=== PATIENT | female | born 1950 | race Two or more races ===

== ENCOUNTER 2018-04-20 18:07 | Inpatient (IN) | payer MEDICAID ==
[~2018-04-20] VITALS: Ht 154.9 cm; Wt 49.6 kg
--- NOTE | ~2018-04-20 | MORECARE ---
CASE MANAGEMENT DISCHARGE SUMMARY PATIENT: CYNTHIA MORLEY UNIT: [id number] ADM DATE: 04/20/18 AGE: 67 : 48 SEX: F ROOM/BED: [facility] AUTHOR: LEANNE,DOC PHYSICIAN: REFERRING PHYSICIAN: LASHELL MCKEON M.D. DATE OF SERVICE: 05/02/18 Discharge Plan Patient Name: CYNTHIA MORLEY Facility: [facility]:[place] : 1950 Planned Disposition: Home Anticipated Discharge Date: Discharge Date: 05/02/2018 Expected LOS: Initial Reviewer: [email or web address] Initial Review Date: 04/23/2018 Generated: 05/02/18 4:29 pm Comments DCP- Discharge Planning Updated by [email or web address]: Brenda Handley on 05/02/18 2:[address] LATE ENTRY 05/01/18 1430 CM received order to work on d/c plan to establish PCP and obtaining discharge medications. CM looked up all of patients medications. Amiodarone is $9.00, Plavix is $9.00, Metoprolol is $9.00, and pravastatin is $4.00. CM spoke with Dr. Lindo to see about PCP planning. Dr. Lindo suggested that patient get set up with [facility]. CM called [facility] and got packet printed in Norwegian for patient. CM will continue to follow and assist as needed with discharge planning / needs. DCP- Discharge Planning Updated by [id number]: Armando Bourgeois on 04/23/18 5:[address] Patient Name: CYNTHIA MORLEY Admission Status: ER Accout number: [id number] Admission Date: 04-20-2018 : 1950 Admission Diagnosis:CHEST PAIN, UNSPECIFIED Attending: LASHELL MCKEON Current LOS: 3 Anticipated DC Date: Planned Disposition: Home Primary Insurance: UNINSURED DISCOUNT PLAN Discharge Planning Comments: CM MET WITH PT AND WINDYER IN ROOM TO DISCUSS DISCHARGE PLANNING AND NEEDS. CM OFFERED TO USE SALES LEADER PHONE FOR TRANSLATION. AFTER INTRODUCTION, PT ASKED FOR HER DAUGHTER, LUCILLE TO INTERPRET. LUCILLE REPORTS SPEAKING A LITTLE BURKINAN. PT REPORTS LIVING AT HOME INDEPENDENTLY WITH ADULT SON. PT HAS NO MEDICAL EQUIPMENT AND NO OUTSIDE SERVICES ASSISTING IN THE HOME. CM DISCUSSED AVAILABILITY OF HOME HEALTH, REHAB SERVICES AND MEDICAL EQUIPMENT. PT HAS UNKNOWN DISCHARGE NEEDS AND REPORTS SHE IS GOING TO HAVE OPEN HEART SURGERY HERE SOON AND DOES NOT KNOW WHAT IS GOING TO HAPPEN AFTER THAT, PT REPORTS PLAN TO DISCHARGE HOME WITH HER SON. DAUGHTER REPORTS FAMILY WILL PICK PT UP FOR DISCHARGE HOME. CM OBTAINED COPY OF PT'S INSURANCE CARD AND PROVIDED TO JUAN PIERRE OF ADMISSIONS REQUESTED. PATIENT REPORTS SPEAKING NO BURKINAN AND UNDERSTANDS MAORI ONLY. PT PLANS TO DISCHARGE HOME WITH HER ADULT SON, UNKNOWN IF THERE ARE ANY DISCHARGE NEEDS AT THIS TIME. CM TO CONTINUE TO FOLLOW AND ASSIST IF NEEDED. Color Receiver: Armando Bourgeois DCPIA - Discharge Planning Initial Assessment Updated by [email or web address]: Armando Bourgeois on 04/23/18 5:56 pm * Is the patient Alert and Oriented? Yes * How many steps to enter\exit or inside your home? 2-0 / 0-I * PCP NONE * [facility] * Preadmission Environment Home with Family * ADLs Independent * Equipment None * Other Equipment NO MEDICAL EQUIPMENT PROVIDER PREFERENCE * List name and contact numbers for known caregivers / representatives who currently or will assist patient after discharge: LUCILLE KEANE, DAUGHTER, * Verbal permission to speak to the caregivers and representatives has been obtained from the patient. Yes * Community resources currently utilized None * Please name any agencies selected above. NONE * Additional services required to return to the preadmission environment? No * Can the patient safely return to the preadmission environment? Yes * Has this patient been hospitalized within the prior 30 days at any hospital? No Last DP export: 04/23/18 5:09 p Patient Name: CYNTHIA MORLEY Page [id number] at 1529 All edits/amendments must be made on the electronic document DICTATION DATE: 05/02/181528 BOARD DESIGN ENGINEER: CONNOR 05/02/181528 RPT#: [id number] DC DATE:05/02/18 STATUS: DIS IN [facility] [address] [place] [address] END OF REPORT
--- NOTE | ~2018-04-20 | HEMODYNAMI ---
PATIENT:CYNTHIA MORLEY MEDICAL RECORD: [id number] : 46 LOCATION:[facility] [address] [facility] [id number] ADMISSION DATE: 04/20/18 Generatedon:04/22/20189:22 Patient name: CYNTHIA MORLEY Patient #: [id number] SSN: DO B: 1950 Date of study: 04/22/2018 Page: Of Hemodynamic Procedure Report Patient Data Patient Demographics Procedure consent was obtained First Name: CYNTHIA Gender: Female Last Name: PEYMAN : 1950 Middle Initial: A Age: 67 year(s) Patient #: [id number] Race: Other Additional ID: [id number] Contact details [address]: [address] [place] [address] TRAIL State: [place] City: [place] Zip code: [address] Past Medical History Allergies: No known allergies Admission Admission Data Admission Date: 04/20/2018 Admission Time: 21:23 Room #: D.2107 Height (in.): 60.63 BSA: 1.51 (m2) Height (cm.): 154 BMI: 22.77 (kg/m2) Weight (lbs.): 119.05 Weight (kg.): 54 Lab Results Lab Result Date: 04/22/2018 Lab Result Time: 0:00 Biochemistry Name Units Result Min Max BUN mg/dl 25 --(----)-* 7 18 Creatinine mg/dl 1 --(--*-)-- 0.6 1.3 Glucose mg/dl 214 --(----)-* 74 106 CBC Name Units Result Min Max Hemoglobin g/dl 12.6 -*(----)-- 13.5 17.5 Procedure Procedure Types Cath Procedure Diagnostic Procedure [facility] w/Coronaries Procedure Description Procedure Date Procedure Date: 04/22/2018 Procedure Start Time: 9:04 Procedure End Time: 9:21 Procedure Staff Name Function Justice Alex MD Performing Physician Keiht Shah RT Medical Historiantristen Reyes RT Monitor Maegan Feliciano RN Nurse Natividad Bui RT Scrub Procedure Data Cath Procedure Fluoroscopy Diagnostic fluoroscopy Total fluoroscopy Time: 2.7 time: 2.7 min min Diagnostic fluoroscopy Total fluoroscopy dose: 359 dose: 359 mGy mGy Contrast Material Contrast Material Type Amount (ml) Isovue 300 72 Entry Location Entry Primary Successful Side Size Upsize Upsize Entry Closure Succes sful Closure Location (Fr) 1 (Fr) 2 (Fr) Remarks Device Remarks Femoral Right 5 Fr Exoseal artery Estimated blood loss: 10 ml Diagnostic catheters Device Type Used For End Catheter Placement MULTIPACK JL 4.0 5Fr Procedure catheter MULTIPACK 3DRC 5Fr Procedure catheter DIAGNOSTIC IM 5Fr Procedure catheter ([id number]) MULTIPACK Pigtail 5 Fr Procedure catheter Procedure Complications No complications Procedure Medications Medication Administration Route Dosage Oxygen etCO2 Nasal cannula 2 l/min Lidocaine 2% added to field 20 Heparin Flush Bag added to field 2 bags (1000units/500ml NS) 0.9% NaCl I.V. 100 ml/hr Versed I.V. 1 mg Fentanyl I.V. 50 mcg Versed I.V. 1 mg Fentanyl I.V. 50 mcg Hemodynamics Rest BSA: 1.51 (m2) HGB: 12.6 (g/dl) O2 Consumption: Estimated: 140.05 (ml/min) O2 Co nsumption indexed: Estimated:92.75 (ml/min/m) Heart Rate: 71 (bpm) Pressure Samples Time Site Value (mmHg) Purpose Heart Use Rate(bpm) 9:15 LV 144/6,14 Snapshot 70 Gradients Valve Time Site Site Mean SEP/DFP Peak To Heart Use 1 2 (mmHg) (sec/min) Peak Rate (mmHg) (bpm) Aortic 9:16 LV AO 70 Snapshots Pre Cath Intra NCS Post Cath Vital Signs Time Heart Resp SPO2 etCO2 NIBP (mmHg) Rhythm Pain Sedation Rate (ipm) (%) (mmHg) Status Level (bpm) 8:32:58 70 23 92 35.4 162/74(121) NSR 0 (11) 10(A) , No pain 8:37:16 73 22 95 31.6 151/85(117) NSR 0 (11) 10(A) , No pain 8:41:32 76 19 94 10.5 153/78(114) NSR 0 (11) 10(A) , No pain 8:45:50 67 15 96 33.9 148/72(106) NSR 0 (11) 10(A) , No pain 8:50:08 67 15 96 26.3 137/69(111) NSR 0 (11) 10(A) , No pain 8:54:22 66 15 95 0 141/70(93) NSR 0 (11) 10(A) , No pain 8:58:38 73 17 94 23.3 141/66(101) NSR 0 (11) 10(A) , No pain 9:02:56 71 17 95 0 139/61(94) NSR 0 (11) 10(A) , No pain 9:07:12 67 13 93 20.3 136/64(110) NSR 0 (11) 9(A) , No pain 9:11:28 67 11 94 27.1 138/62(92) NSR 0 (11) 9(A) , No pain 9:15:44 71 14 93 18 129/65(81) NSR 0 (11) 9(A) , No pain 9:19:56 68 16 94 18.1 141/62(87) NSR 0 (11) 10(A) , No pain Medications Time Medication Route Dose Verified Delivered Reason Notes Effe ctiveness by by 8:36:12 Oxygen etCO2 2 Justice Buffie used for Nasal l/min Isai Feliciano RN procedure cannula 8:38:18 Lidocaine 2% added 20ml Justice Justice for local to vial Isai Alex MD anesthetic field 8:38:23 Heparin Flush added 2 Justice Justice used for Bag to bags Isai Alex MD procedure (1000units/500ml field NS) 8:38:31 0.9% NaCl I.V. 100 Justice Buffie Per ml/hr Isai Feliciaon RN physician 9:04:24 Versed I.V. 1 mg Justice Buffie for Isai Feliciano RN sedation 9:04:30 Fentanyl I.V. 50 Justice Buffie for mcg Isai Feliciano RN sedation 9:09:45 Versed I.V. 1 mg Justice Buffie for Isai Feliciano RN sedation 9:09:48 Fentanyl I.V. 50 Justice Buffie for mcg Isai Feliciano RN sedation Procedure Log Time Note 8:06:25 Patient Height : 60.63 inches 8:06:29 Patient Weight : 119.05 lbs 8:28:50 Lab Result : Creatinine 1 mg/dl 8::50 Lab Result : Hemoglobin 12.6 g/dl 8::50 Lab Result : Glucose 214 mg/dl 8::50 Lab Result : BUN 25 mg/dl 8:29:37 Diagnostic Cath status Elective 8:29:44 Keith Shah RT(R) sent for patient. Start room use. 8:30:35 Transported pt to laboratory phlebotomist via bed after using the foreign language line to assist this nurse to obtain understanding and made available the opportunity to have her ask any questions, and obtaining other pert. information needed. 8:31:12 Time tracking: Regular hours (M-F 7:00 - 5:00) 8:31:26 Plan of Care:Hemodynamics will remain stable., Cardiac rhythm will remain stable., Comfort level will be maintained., Respiratory function will remain adequate., Patient/ family verbilizes understanding of procedure., Procedure tolerated without complication., Recovers from procedure without complications.. 8:31:35 Patient received from Pre/Post Procedure Room to CCL 2 Alert and oriented. Tansferred to table in Supine position. 8:31:36 Warm blankets applied, and ramone hugger turned on for patient comfort. 8:31:37 Correct patient and procedure confirmed by team. 8:31:39 Signed procedure consent form obtained from patient. 8:31:40 ECG and BP/O2 sat monitors applied to patient. 8:31:42 Vital chart was started 8:31:45 Baseline sample Acquired. 8:32:02 Full Disclosure recording started 8:32:27 H&P Date Dictated: 04/20/2018 Within 30 days and on chart., H&P Addendum completed by physician on day of procedure. (MUST COMPLETE FOR ALL OUTPATIENTS). 8:32:29 Pre-procedure instructions explained to patient. 8:32:38 Family in patients room. 8:32:40 Patient NPO since Midnight. 8:32:52 Patient allergic to No known allergies 8:33:02 Is the patient allergic to Iodine/contrast media? No. 8:33:07 Was the patient premedicated? Yes 8:33:09 Is patient on blood thinner?No 8:33:14 Patient diabetic? Yes. 8:33:15 If diabetic: On Metformin? Unknown 8:33:28 Snore? No 8:33:38 Sleep apnea? No 8:33:40 Deviated septum? No 8:34:01 Dentures? No partials 8:34:08 Patient pain scale 0/10 ?. 8:34:20 IV patent on arrival in left forearm with 0.9% NaCl at [facility]. 8:34:25 Lab results completed and on chart. 8:34:29 Right groin area was prepped with chlora-prep and draped in sterile fashion 8:34:30 Alarms reviewed by R. N. 8:34:30 Sharps counted by scrub and verified by R.N. 8:34:31 Physician paged 8:36:12 Oxygen 2 l/min etCO2 Nasal cannula was administered by Maegan Feliciano RN; used for procedure; 8:38:18 Lidocaine 2% 20ml vial added to field was administered by Justice Alex MD; for local anesthetic; 8:38:23 Heparin Flush Bag (1000units/500ml NS) 2 bags added to field was administered by Justice Alex MD; used for procedure; 8:38:31 0.9% NaCl 100 ml/hr I.V. was administered by Maegan Feliciano RN; Per physician; 9:03:56 Physician arrived 9:03:57 --------ALL STOP TIME OUT------ 9:03:59 Final Timeout: patient, procedure, and site verified with staff and physician. All members of the team are in agreement. 9:04:02 Right groin site verified by team. 9:04:05 Physical assessment completed. ASA score P 2 - A patient with mild systemic disease as per Justice Alex MD. 9:04:09 Sedation plan: IV Moderate Sedation Medication:Versed, Fentanyl 9:04:13 Use device set Femoral Dx 9:04:16 Procedure started. 9:04:24 Versed 1 mg I.V. was administered by Maegan Feliciano RN; for sedation; 9:04:30 Fentanyl 50 mcg I.V. was administered by Maegan Feliciano RN; for sedation; 9:04:35 Local anesthetic to right femoral artery with Lidocaine 2% by Justice Alex MD.INITIAL ACCESS ONLY 9:04:36 ACIST Syringe (07098) opened to sterile field. 9:04:37 Bag Decanter (2002S) opened to sterile field. 9:04:37 Medline Cath Pack ([id number]) opened to sterile field. 9:04:38 DIAGNOSTIC WIRE .035 260cm J wire (931904) opened to sterile field. 9:04:39 ACIST Hand Control (76238) opened to sterile field. 9:04:40 ACIST Manifold (88419) opened to sterile field. 9:04:40 DIAGNOSTIC Multipack 5Fr catheter set (YR4801) opened to sterile field. 9:04:43 SHEATH 5FR [place] (XOM047) opened to sterile field. 9:06:49 A 5 Fr sheath was inserted into the Right Femoral artery 9:07:01 A MULTIPACK JL 4.0 5Fr catheter was advanced over the wire and used for Procedure. 9:09:37 LCA angiography performed. 9:09:40 Catheter removed. 9:09:45 Versed 1 mg I.V. was administered by Maegan Feliciano RN; for sedation; 9:09:48 Fentanyl 50 mcg I.V. was administered by Maegan Feliciano RN; for sedation; 9:09:53 A MULTIPACK 3DRC 5Fr catheter was advanced over the wire and used for Procedure. 9:11:11 RCA angiography performed. 9:12:35 A DIAGNOSTIC IM 5Fr catheter ([id number]) was advanced over the wire and used for Procedure. 9:13:55 BAUER angiogram 9:14:25 Catheter removed. 9:15:08 A MULTIPACK Pigtail 5 Fr catheter was advanced over the wire and used for Procedure. 9:15:48 LV hemodynamics recorded. 9:16:02 EF : 35 % 9:17:00 Catheter removed. 9:17:41 EXOSEAL 5Fr (EX500) opened to sterile field. 9:17:42 Tegaderm 4 x 4 (1626W) opened to sterile field. 9:19:25 Sheath removed intact; hemostasis achieved with Exoseal to the Right Femoral artery. 9:19:36 Procedure ended.(Physican Out) 9:19:42 Fluoroscopy time 02.70 minutes. 9:19:47 Fluoroscopy dose: 359 mGy 9:19:47 Flurop Dose total: 359 9:19:53 Contrast amount:Isovue 300 72ml. 9:19:56 Sharps counted by scrub and verified by R.N. 9:20:25 Insertion/operative site no bleeding no hematoma. 9:20:31 Post-op/insertion site Right Femoral artery dressed using a 4 x 4 and Tegaderm. 9:20:34 Post right femoral artery:stable 9:20:45 Post-procedure physical assessment completed. ASA score P 3 - A patient with severe systemic disease as per Justice Alex MD. 9:20:57 Post procedure rhythm: unchanged. 9:21:00 Estimated blood loss: 10 ml 9:21:02 Post procedure instruction explained to patient.Patient verbalizes understanding. 9:21:05 Patient needs reinforcement of post procedure teaching. 9:21:14 Procedure and supply charges have been captured, reviewed, submitted and are correct. 9:21:38 Procedure Complication : No complications 9:21:41 Vital chart was stopped 9:21:42 See physician's report for complete and final results. 9:21:43 Report given to Pre/Post Procedure Room. 9:21:47 Patient transfered to Pre/Post Procedure Room with Stretcher. 9:21:49 Procedure ended. 9:21:49 Full Disclosure recording stopped 9:21:57 End room use (Document Last) Device Usage Item Name Manufacture Quantity Catalog Hospital Part Current Minimal L ot# / Number Charge Number Stock Stock Serial# Code ACIST Acist 1 41338 804393 448089 411724 20 Syringe Medical (64051) Systems Inc Bag Microtek 1 968872 23735 231563 5 Decanter Medical Inc. () Medline Medline 1 [id number] 276660 91651 821275 5 Cath Pack ([id number]) DIAGNOSTIC St Osvaldo 1 308145 983919 717845 912507 30 WIRE .035 260cm J wire (216897) ACIST Hand Acist 1 43588 385022 432625 485940 5 Control Medical (90285) Systems Inc ACIST Acist 1 19586 100136 040777 562630 5 Manifold Medical (33654) Systems Inc DIAGNOSTIC Cardinal 1 AP6068 267654 51600 917054 30 Multipack Health 5Fr catheter set (FF3362) SHEATH 5FR Terumo 1 VVM760 919417 964754 445335 40 [place] (AZJ065) MULTIPACK Cardinal 1 881149 5 JL 4.0 5Fr Health catheter MULTIPACK Cardinal 1 836661 5 3DRC 5Fr Health catheter DIAGNOSTIC Cardinal 1 [id number] 123712 162146 885533 5 IM 5Fr Health catheter ([id number]) MULTIPACK Cardinal 1 794385 5 Pigtail 5 Health Fr catheter EXOSEAL 5Fr Cardinal 1 EX500 567042 042142 382109 10 (EX500) Health Tegaderm 4 3M 1 1626W 631332 383839 123065 5 x 4 (1626W) Signature Audit [place] Stage Time Signature Unsigned Intra-Procedure 04/22/2018 Shahida Reyes 9:22:53 AM RT(R) Signatures Monitor : Shahida Reyes Signature : RT Date : Time : [address] [address]
--- NOTE | ~2018-04-20 | OP ---
PATIENT NAME: CYNTHIA MORLEY MEDICAL RECORD: [id number] :46 LOCATION:D.CVI D.CV04 ADMISSION DATE:04/20/18 SURGEON: JACE BAR MD DATE OF OPERATION: 04/25/2018 SURGEON: Jace Bar MD ASSISTANTS: Shelbi Meyers MD and Christopher Sepulveda MD PREOPERATIVE DIAGNOSES: Coronary artery disease with myocardial infarction, ischemic cardiomyopathy, uncontrolled diabetes, hypertension, and hyperlipidemia. POSTOPERATIVE DIAGNOSES: Coronary artery disease with myocardial infarction, ischemic cardiomyopathy, uncontrolled diabetes, hypertension, and hyperlipidemia. PROCEDURES: 1. Coronary artery bypass graft times 3 (left internal mammary artery to LAD, reverse saphenous vein graft from aorta to diagonal and aorta to obtuse marginal). 2. Endoscopic saphenous vein harvest. 3. Percutaneous insertion intra-aortic balloon pump via right common femoral artery. ANESTHESIA: General endotracheal anesthesia. ESTIMATED BLOOD LOSS: Total cardiopulmonary bypass with CellSaver retransfusion, no bank blood transfusions. SPECIMENS: None. COMPLICATIONS: None. CONDITION: Stable. DISPOSITION: CV ICU. OPERATIVE FINDINGS: 1. Transesophageal echocardiography confirmed ischemic cardiomyopathy with ejection fraction of 35% but no valvular stenosis or incompetence, improved contractility after coronary artery bypass graft. 2. Adequate quality greater saphenous vein, particularly the upper thigh dissection, which was used for the obtuse marginal graft. 3. Good quality internal mammary artery. The LAD was a severely diseased vessel and a 1.5 mm probe passed proximally 3 cm and distally almost to the apex with distal disease as seen on the arteriogram. 4. The diagonal was a branching vessel. The only site for distal anastomosis was in the more proximal branch, which a 1.0 mm probe would not pass more than [address], but after anastomosis did have outflow and after separation from cardiopulmonary bypass and heparin did have audible Doppler flow, however, very poor target and would not expect long-term patency of this graft. 5. The obtuse marginal was a 1.5 mm severely diseased vessel. 6. After separation from cardiopulmonary bypass, hypotension and dysrhythmia consistent with air embolus, returned to cardiopulmonary bypass and graft OPERATIVE REPORT [id number] CYNTHIA MORLEY de-aired. Additionally, intraaortic balloon pump placed after separation second time from cardiopulmonary bypass and stable. OPERATIVE INDICATIONS: Coronary artery disease, myocardial infarction. OPERATIVE SUMMARY: The patient was brought to the operating suite. General anesthesia was obtained. The patient was prepped and draped. Greater saphenous vein harvested endoscopically in the right lower extremity. Side branches divided with cautery. Vessels were ligated proximally and distally and removed. Side branches were clipped, tied, and oversewn. The leg was later closed in 2 layers. Median sternotomy incision was made. Subcutaneous tissue divided with electrocautery. The sternum was divided with a saw. The left hemisternum was elevated. The pleural cavity was entered. Left internal mammary artery and veins were taken down as a pedicle graft. Sternal retractor was placed. Pericardium was opened. Heparin was given. The internal mammary was clipped distally midway for anastomosis. Aorta and right atrium were cannulated. The patient was placed on cardiopulmonary bypass. Sites for distal anastomosis were selected. Retrograde cardioplegic cannula was inserted. Antegrade cardioplegic cannula was inserted. The patient was cooled only until 35 degrees and cross clamp was placed. Cardioplegia was given antegrade and retrograde and cardioplegia was repeated at 15-minute intervals including down the completed vein grafts. Distal anastomoses were performed in standard technique. Proximal anastomosis was with a single cross-clamp technique. The aortic root was de-aired by releasing pump flow, removing the cross clamp, and deairing the root, tying the proximal anastomoses, de-airing the grafts and then restoring the flow. The proximal anastomotic sites and distal anastomotic sites were inspected for bleeding and they were hemostatic. The patient was then weaned from cardiopulmonary bypass and was stable. Venous cannula was removed with the patient had hypotension and some evidence of dysrhythmia. The patient was recannulated and returned to cardiopulmonary bypass. A small amount of air in the diagonal graft was removed percutaneously. The right femoral artery was cannulated. The patient resumed his spontaneous rhythm, weaned from cardiopulmonary bypass, and was stable. The sequential dilators were placed in the right femoral artery and the sheath and the balloon was placed to the appropriate level. Proper functioning of the intra-aortic balloon pump was observed. The patient was decannulated. Aortic annulus was oversewn with pledgeted Prolene suture. The retrograde cardioplegia cannula site was oversewn with a Prolene suture. Hemostasis was ensured. The grafts lay appropriately. Good Doppler signals were noted. Protamine was given. Thorough irrigation was undertaken. Drains were placed in the mediastinum, 1 with the tip in the right pleural cavity and the left pleural cavity. Pericardial fat was loosely reapproximated. The left chest was evacuated and irrigated. The internal mammary harvest site was inspected for bleeding. Sternum was closed with wires. Fascia was closed. Subcutaneous tissue closed. Skin was closed. Needle and sponge counts were reported correct. Dermabond was placed on the incision and the patient was taken to the ICU in stable condition. OPERATIVE REPORT [id number] CYNTHIA MORLEY TRANSINT:[id number] Voice Confirmation ID: [id number] DOCUMENT ID: [id number] JACE BAR MD at 1145 CC: LASHELL MCKEON M.D. [id number] DICTATION DATE: 04/25/18 1550 VALET ATTENDANT: 04/26/18 0044 ADM IN [facility] [address] [place] [address]
--- NOTE | ~2018-04-20 | MORECARE ---
CASE MANAGEMENT DISCHARGE SUMMARY PATIENT: CYNTHIA MORLEY UNIT: [id number] ADM DATE: 04/20/18 AGE: 67 : 48 SEX: F ROOM/BED: [facility] AUTHOR: CARI PERDOMO PHYSICIAN: REFERRING PHYSICIAN: LASHELL MCKEON M.D. DATE OF SERVICE: 04/23/18 Discharge Plan Patient Name: CYNTHIA MORLEY Facility: [facility]:[place] : 1950 Planned Disposition: Home Anticipated Discharge Date: Discharge Date: Expected LOS: Initial Reviewer: [email or web address] Initial Review Date: 04/23/2018 Generated: 04/23/18 7:00 pm DCPIA - Discharge Planning Initial Assessment Updated by [email or web address]: Armando Bourgeois on 04/23/18 5:56 pm * Is the patient Alert and Oriented? Yes * How many steps to enter\exit or inside your home? 2-0 / 0-I * PCP NONE * [facility] [address] [place] [address] * Preadmission Environment Home with Family * ADLs Independent * Equipment None * Other Equipment NO MEDICAL EQUIPMENT PROVIDER PREFERENCE * List name and contact numbers for known caregivers / representatives who currently or will assist patient after discharge: LUCILLE KEANE, DAUGHTER, * Verbal permission to speak to the caregivers and representatives has been obtained from the patient. Yes * Community resources currently utilized None * Please name any agencies selected above. NONE * Additional services required to return to the preadmission environment? No * Can the patient safely return to the preadmission environment? Yes * Has this patient been hospitalized within the prior 30 days at any hospital? No Patient Name: CYNTHIA MORLEY Page [id number] at 1800 All edits/amendments must be made on the electronic document DICTATION DATE: 04/23/181758 APPRENTICE PLANT ATTENDANT: CONNOR 04/23/181758 RPT#: [id number] DC DATE: STATUS: ADM IN [facility] [address] [place] [address] END OF REPORT
--- NOTE | ~2018-04-20 | TEE ---
PATIENT:CYNTHIA MORLEY MEDICAL RECORD: [id number] LOCATION:[place] [address] AGE OF PATIENT: 67 ADMISSION DATE: 04/20/18 SEX: F REFERRING PHYSICIAN: INTERPRETING PHYSICIAN: JESSICA BURLESON MD TRANSESOPHAGEAL ECHOCARDIOGRAM Date: 04/25/18 KESHAV CHARGE Y INDICATIONS: CABG PREMEDICATIONS: PATIENT'S RESPONSE PROCEDURE DOPPLER MEASUREMENTS: LVIT LA PA RA LVOT RVOT Asc. Ao AV Gradient Peak AV Mean AV Area MV Gradient Peak MV Mean MV Area INTERPRETATION: Doppler: 2-D: COLOR FLOW DOPPLER NORMAL SALINE STUDY: MISCELLANOUS: DIAGNOSIS: PLAN: Automatic Screwmaker:2 Dr. Alex Line Camera Operator: 1 BENJIBRYAN GLENNA COMMENTS: DIPIKA PATIENT DATE OF SERVICE: 04/25/2018 PROCEDURE: Transesophageal echo evaluation of valvular structures during bypass surgery. FINDINGS: 1. Left ventricular chamber size is within normal limits. Left ventricular systolic function is moderately depressed. Overall ejection fraction of 35% to 40%. TRANSESOPHAGEAL ECHOCARDIOGRAM REPORT [id number] CYNTHIA MORLEY 2. Left atrium, right atrium, and right ventricular chamber sizes are mildly dilated. 3. Valvular structures have normal structure and motion. 4. Doppler interrogation reveals only trace mitral regurgitation. No other valvular insufficiency or stenosis. 5. No evidence of pericardial effusion or left ventricular thrombus. TRANSINT:[id number] Voice Confirmation ID: [id number] DOCUMENT ID: [id number] at 1025 CC: [id number] DICTATION DATE: 04/25/18 1237 RESIDENTIAL ENERGY AUDITOR: 04/26/18 0314 ADM IN [place] [address] [place] [address]
--- NOTE | ~2018-04-20 | MORECARE ---
CASE MANAGEMENT DISCHARGE SUMMARY PATIENT: CYNTHIA MORLEY UNIT: [id number] ADM DATE: 04/20/18 AGE: 67 : 48 SEX: F [facility] AUTHOR: LEANNE,DOC PHYSICIAN: REFERRING PHYSICIAN: LASHELL MCKEON M.D. DATE OF SERVICE: 05/02/18 Discharge Plan Patient Name: CYNTHIA MORLEY Facility: [facility]:[place] : 1950 Planned Disposition: Home Anticipated Discharge Date: Discharge Date: 05/02/2018 Expected LOS: Initial Reviewer: [email or web address] Initial Review Date: 04/23/2018 Generated: 05/02/18 4:45 pm Comments DCP- Discharge Planning Updated by [email or web address]: Brenda Handley on 05/02/18 2:[address] CM was notified that patient has Medicaid Pending with spend-down. CM was informed that with Medicaid patient can be seen at [facility]. CM printed out information regarding [facility] and $4.00 prescription drug list in Turkish for patient. CM and Veena called [facility] Veena went over d/c instructions and CM went over setting up appointment with [facility]. Patient voiced understanding per sodder. Veena also went over patient medications and if she would be able to obtain scripts for approximately $36.00 monthly. Patient stated she had no income but would be able to get medications. Veena expressed how very important it was to take her medications. Patient stated that she understood. Medications to be called into [facility] per nursing. Family was in room during this conversation and they all understand/ agree with discharge plan / instructions. CM will continue to follow and assist with discharge planning / needs DCP- Discharge Planning Updated by [email or web address]: Brenda Handley on 05/02/18 2:[address] LATE ENTRY 05/01/18 1430 CM received order to work on d/c plan to establish PCP and obtaining discharge medications. CM looked up all of patients medications. Amiodarone is $9.00, Plavix is $9.00, Metoprolol is $9.00, and pravastatin is $4.00. CM spoke with Dr. Lindo to see about PCP planning. Dr. Lindo suggested that patient get set up with [facility]. CM called Clinic and got packet printed in Turkish for patient. CM will continue to follow and assist as needed with discharge planning / needs. DCP- Discharge Planning Updated by [email or web address]: Armando Bourgeois on 04/23/18 5:[address] Patient Name: CYNTHIA MORLEY Admission Status: ER Accout number: [id number] Admission Date: 04-20-2018 : 1950 Admission Diagnosis:CHEST PAIN, UNSPECIFIED Attending: LASHELL MCKEON Current LOS: 3 Anticipated DC Date: Planned Disposition: Home Primary Insurance: UNINSURED DISCOUNT PLAN Discharge Planning Comments: CM MET WITH PT AND BYRONUGHER IN ROOM TO DISCUSS DISCHARGE PLANNING AND NEEDS. CM OFFERED TO USE GIS DEVELOPER PHONE FOR TRANSLATION. AFTER INTRODUCTION, PT ASKED FOR HER DAUGHTER, LUCILLE TO INTERPRET. LUCILLE REPORTS SPEAKING A LITTLE STATELESS. PT REPORTS LIVING AT HOME INDEPENDENTLY WITH ADULT SON. PT HAS NO MEDICAL EQUIPMENT AND NO OUTSIDE SERVICES ASSISTING IN THE HOME. CM DISCUSSED AVAILABILITY OF HOME HEALTH, REHAB SERVICES AND MEDICAL EQUIPMENT. PT HAS UNKNOWN DISCHARGE NEEDS AND REPORTS SHE IS GOING TO HAVE OPEN HEART SURGERY HERE SOON AND DOES NOT KNOW WHAT IS GOING TO HAPPEN AFTER THAT, PT REPORTS PLAN TO DISCHARGE HOME WITH HER SON. DAUGHTER REPORTS FAMILY WILL PICK PT UP FOR DISCHARGE HOME. CM OBTAINED COPY OF PT'S INSURANCE CARD AND PROVIDED TO JUAN PIERRE OF ADMISSIONS REQUESTED. PATIENT REPORTS SPEAKING NO STATELESS AND UNDERSTANDS [place] ONLY. PT PLANS TO DISCHARGE HOME WITH HER ADULT SON, UNKNOWN IF THERE ARE ANY DISCHARGE NEEDS AT THIS TIME. CM TO CONTINUE TO FOLLOW AND ASSIST IF NEEDED. Transmission Maintenance Supervisor: Armando Bourgeois DCPIA - Discharge Planning Initial Assessment Updated by [email or web address]: Armando Bourgeois on 04/23/18 5:56 pm * Is the patient Alert and Oriented? Yes * How many steps to enter\exit or inside your home? 2-0 / 0-I * PCP NONE * [facility] [address] [place] [address] * Preadmission Environment Home with Family * ADLs Independent * Equipment None * Other Equipment NO MEDICAL EQUIPMENT PROVIDER PREFERENCE * List name and contact numbers for known caregivers / representatives who currently or will assist patient after discharge: LUCILLE KEANE, DAUGHTER, * Verbal permission to speak to the caregivers and representatives has been obtained from the patient. Yes * Community resources currently utilized None * Please name any agencies selected above. NONE * Additional services required to return to the preadmission environment? No * Can the patient safely return to the preadmission environment? Yes * Has this patient been hospitalized within the prior 30 days at any hospital? No Last DP export: 05/02/18 2:29 Patient Name: CYNTHIA MORLEY Page [id number] at 1545 All edits/amendments must be made on the electronic document DICTATION DATE: 05/02/181543 OPTION TRADER: CONNOR 05/02/18 1544 RPT#: [id number] DC DATE:05/02/18 STATUS: DIS IN [facility] [address] [place] [address] END OF REPORT
--- NOTE | ~2018-04-20 | MORECARE ---
CASE MANAGEMENT DISCHARGE SUMMARY PATIENT: CYNTHIA MORLEY UNIT: [id number] ADM DATE: 04/20/18 AGE: 67 : 48 SEX: F ROOM/BED: D[facility] AUTHOR: LEANNE,DOC PHYSICIAN: REFERRING PHYSICIAN: LASHELL MCKEON M.D. DATE OF SERVICE: 04/23/18 Discharge Plan Patient Name: CYNTHIA MORLEY Facility: [facility]:[place] : 1950 Planned Disposition: Home Anticipated Discharge Date: Discharge Date: Expected LOS: Initial Reviewer: [email or web address] Initial Review Date: 04/23/2018 Generated: 04/23/18 7:09 pm Comments DCP- Discharge Planning Updated by [email or web address]: Armando Bourgeois on 04/23/18 5:[address] Patient Name: CYNTHIA MORLEY Admission Status: ER Accout number: [id number] Admission Date: 04-20-2018 : 1950 Admission Diagnosis:CHEST PAIN, UNSPECIFIED Attending: LASHELL MCKEON Current LOS: 3 Anticipated DC Date: Planned Disposition: Home Primary Insurance: UNINSURED DISCOUNT PLAN Discharge Planning Comments: CM MET WITH PT AND THAD IN ROOM TO DISCUSS DISCHARGE PLANNING AND NEEDS. CM OFFERED TO USE SHANK SKINNER PHONE FOR TRANSLATION. AFTER INTRODUCTION, PT ASKED FOR HER DAUGHTERLUCILLE TO INTERPRET. LUCILLE REPORTS SPEAKING A LITTLE CAMEROONIAN. PT REPORTS LIVING AT HOME INDEPENDENTLY WITH ADULT SON. PT HAS NO MEDICAL EQUIPMENT AND NO OUTSIDE SERVICES ASSISTING IN THE HOME. CM DISCUSSED AVAILABILITY OF HOME HEALTH, REHAB SERVICES AND MEDICAL EQUIPMENT. PT HAS UNKNOWN DISCHARGE NEEDS AND REPORTS SHE IS GOING TO HAVE OPEN HEART SURGERY HERE SOON AND DOES NOT KNOW WHAT IS GOING TO HAPPEN AFTER THAT, PT REPORTS PLAN TO DISCHARGE HOME WITH HER SON. DAUGHTER REPORTS FAMILY WILL PICK PT UP FOR DISCHARGE HOME. CM OBTAINED COPY OF PT'S INSURANCE CARD AND PROVIDED TO JUAN PIERRE OF ADMISSIONS REQUESTED. PATIENT REPORTS SPEAKING NO CAMEROONIAN AND UNDERSTANDS [place] ONLY. PT PLANS TO DISCHARGE HOME WITH HER ADULT SON, UNKNOWN IF THERE ARE ANY DISCHARGE NEEDS AT THIS TIME. CM TO CONTINUE TO FOLLOW AND ASSIST IF NEEDED. Bindery Machine Feeder Offbearer: Armando Bourgeois DCPIA - Discharge Planning Initial Assessment Updated by [email or web address]: Armando Bourgeois on 04/23/18 5:56 pm * Is the patient Alert and Oriented? Yes * How many steps to enter\exit or inside your home? 2-0 / 0-I * PCP NONE * [facility] [address] [place] [address] * Preadmission Environment Home with Family * ADLs Independent * Equipment None * Other Equipment NO MEDICAL EQUIPMENT PROVIDER PREFERENCE * List name and contact numbers for known caregivers / representatives who currently or will assist patient after discharge: LUCILLE KEANE, DAUGHTER, * Verbal permission to speak to the caregivers and representatives has been obtained from the patient. Yes * Community resources currently utilized None * Please name any agencies selected above. NONE * Additional services required to return to the preadmission environment? No * Can the patient safely return to the preadmission environment? Yes * Has this patient been hospitalized within the prior 30 days at any hospital? No Last DP export: 04/23/18 5:00 p Patient Name: CYNTHIA MORLEY Page 44315 at 1809 All edits/amendments must be made on the electronic document DICTATION DATE: 04/23/181807 URBAN AND REGIONAL PLANNER: CONNOR 04/23/181807 RPT#: [id number] DC DATE: STATUS: ADM IN [facility] [address] [place] [address] END OF REPORT
[2018-04-20 18:28] LABS: BASOPHILS 0.3 % (0-2); EOSINOPHILS 2.6 % (0-7); HEMATOCRIT 39.7 % (36.0-48.0); HEMOGLOBIN 13.5 g/dL (12-16); IMMATURE GRANULOCYTES 0.3 % (0-5); LYMPHOCYTES 29.3 % (15-50); MCH 30.1 pg (26.0-34.0); MCV 88.4 fL (80.0-100.0); MEAN PLATELET VOLUME 12.2 fL (7.4-10.4); MONOCYTES 9.9 % (2-11); NEUTROPHILS 57.6 % (40-80); PLATELET COUNT 165 10x3/uL (130-400); RBC 4.49 10x6/uL (4.00-5.40); RDW 12.9 % (11.5-14.5); WBC 6.2 10x3/uL (4.8-10.8)
[2018-04-20 18:44] LABS: APTT 27.2 SECONDS (22.8-39.4); INR 0.94 (0.85-1.17)
[2018-04-20 18:46] LABS: D-DIMER-QUANTITATIVE 0.38 ug/mLFEU (0.20-0.54)
[2018-04-20 19:00] VITALS: BP 130/62
[2018-04-20 19:05] LABS: ALBUMIN 2.5 g/dL (3.4-5.0); ALKALINE PHOSPHATASE 113 U/L (46-116); ALT (SGPT) 25 U/L (10-68); BILIRUBIN - TOTAL 0.28 mg/dL (0.2-1.3); CALCIUM 8.8 mg/dL (8.5-10.1); CARBON DIOXIDE 27.3 mmol/L (21.0-32.0); CHLORIDE - SERUM 101 mmol/L (98-107); CKMB 0.9 U/L (0.0-3.6); CREATINE KINASE 55 UL (21-215); CREATININE - SERUM 1.6 mg/dL (0.6-1.3); MAGNESIUM - SERUM 1.9 mg/dL (1.8-2.4); POTASSIUM - SERUM 4.9 mmol/L (3.5-5.1); PROTEIN - SERUM 6.9 g/dL (6.4-8.2); SODIUM 135 mmol/L (136-145); UREA NITROGEN 22 mg/dL (7-18); eGFR NON AFRICAN AMERICAN 34 mL/min (90-120)
[2018-04-20 19:07] LABS: CALC OSMOLALITY 291 mosm/kg (275-300); GLUCOSE 445 mg/dL (74-106); TROPONIN-I 0.387 ng/mL (0.000-0.060)
[2018-04-20 21:32] VITALS: BP 155/75
[2018-04-21 00:48] VITALS: BP 171/83; BMI 22.7
[2018-04-21 04:30] VITALS: BP 144/70
[2018-04-21 06:40] LABS: BASOPHILS 0.4 % (0-2); EOSINOPHILS 4.5 % (0-7); HEMATOCRIT 37.9 % (36.0-48.0); HEMOGLOBIN 12.6 g/dL (12-16); IMMATURE GRANULOCYTES 0.2 % (0-5); LYMPHOCYTES 43.9 % (15-50); MCH 29.8 pg (26.0-34.0); MCHC 33.2 g/dL (31.0-37.0); MCV 89.6 fL (80.0-100.0); MEAN PLATELET VOLUME 12.6 fL (7.4-10.4); MONOCYTES 11.6 % (2-11); NEUTROPHILS 39.4 % (40-80); PLATELET COUNT 148 10x3/uL (130-400); RBC 4.23 10x6/uL (4.00-5.40); WBC 5.6 10x3/uL (4.8-10.8)
[2018-04-21 07:29] LABS: ANION GAP 12.4 mmol/L (8-16); CALCIUM 8.6 mg/dL (8.5-10.1); CARBON DIOXIDE 26.9 mmol/L (21.0-32.0); CREATININE - SERUM 1.2 mg/dL (0.6-1.3); POTASSIUM - SERUM 4.3 mmol/L (3.5-5.1); TROPONIN-I 0.968 ng/mL (0.000-0.060)
[2018-04-21 11:53] VITALS: BP 150/74
[2018-04-21 14:52] VITALS: BP 143/69
[2018-04-21 20:30] VITALS: BP 109/74
[2018-04-22 05:52] LABS: BASOPHILS 0.6 % (0-2); EOSINOPHILS 3.8 % (0-7); HEMATOCRIT 40.4 % (36.0-48.0); HEMOGLOBIN 13.4 g/dL (12-16); IMMATURE GRANULOCYTES 0.1 % (0-5); LYMPHOCYTES 42.3 % (15-50); MCHC 33.2 g/dL (31.0-37.0); MCV 90.6 fL (80.0-100.0); MONOCYTES 8.4 % (2-11); NEUTROPHILS 44.8 % (40-80); PLATELET COUNT 165 10x3/uL (130-400); RBC 4.46 10x6/uL (4.00-5.40)
[2018-04-22 05:58] LABS: WBC 7.1 10x3/uL (4.8-10.8)
[2018-04-22 06:16] LABS: CALCIUM 9.1 mg/dL (8.5-10.1); CARBON DIOXIDE 29.6 mmol/L (21.0-32.0); POTASSIUM - SERUM 4.6 mmol/L (3.5-5.1)
[2018-04-22 07:57] VITALS: BP 152/61
[2018-04-22 10:40] VITALS: BP 136/71
[2018-04-22 12:47] VITALS: Ht 154.9 cm; Wt 49.6 kg
[2018-04-22 15:43] VITALS: BP 134/63
[2018-04-22 22:11] VITALS: BP 149/71
[2018-04-23] VITALS (35 sets, daily range): BP systolic 97–157; BP diastolic 52–81
[2018-04-23 15:06] LABS: HEMATOCRIT 39.9 % (36.0-48.0); HEMOGLOBIN 13.6 g/dL (12-16); MCH 30.8 pg (26.0-34.0); MCHC 34.1 g/dL (31.0-37.0); MCV 90.5 fL (80.0-100.0); MEAN PLATELET VOLUME 12.8 fL (7.4-10.4); RBC 4.41 10x6/uL (4.00-5.40); WBC 6.3 10x3/uL (4.8-10.8)
[2018-04-23 15:14] LABS: APTT 26.6 SECONDS (22.8-39.4); INR 0.93 (0.85-1.17)
[2018-04-24] VITALS (92 sets, daily range): BP systolic 93–157; BP diastolic 44–91
[2018-04-24 00:54] LABS: HEMATOCRIT 38.2 % (36.0-48.0); HEMOGLOBIN 12.7 g/dL (12-16); MCH 29.7 pg (26.0-34.0); MCHC 33.2 g/dL (31.0-37.0); MCV 89.5 fL (80.0-100.0); MEAN PLATELET VOLUME 11.8 fL (7.4-10.4); RBC 4.27 10x6/uL (4.00-5.40); WBC 6.6 10x3/uL (4.8-10.8)
[2018-04-24 09:05] LABS: BASOPHILS 0.4 % (0-2); EOSINOPHILS 2.9 % (0-7); HEMATOCRIT 38.3 % (36.0-48.0); HEMOGLOBIN 12.8 g/dL (12-16); IMMATURE GRANULOCYTES 0.1 % (0-5); LYMPHOCYTES 22.3 % (15-50); MCHC 33.4 g/dL (31.0-37.0); MCV 89.9 fL (80.0-100.0); MEAN PLATELET VOLUME 13.4 fL (7.4-10.4); MONOCYTES 11.6 % (2-11); NEUTROPHILS 62.7 % (40-80); PLATELET COUNT 169 10x3/uL (130-400); RBC 4.26 10x6/uL (4.00-5.40); RDW 12.9 % (11.5-14.5)
[2018-04-24 09:35] LABS: ALBUMIN 2.3 g/dL (3.4-5.0); ANION GAP 14.2 mmol/L (8-16); BILIRUBIN - TOTAL 0.3 mg/dL (0.2-1.3); CALCIUM 8.3 mg/dL (8.5-10.1); CARBON DIOXIDE 25.6 mmol/L (21.0-32.0); CREATININE - SERUM 1.1 mg/dL (0.6-1.3); PHOSPHOROUS 3.2 mg/dL (2.5-4.9); POTASSIUM - SERUM 3.8 mmol/L (3.5-5.1); PROTEIN - SERUM 5.8 g/dL (6.4-8.2); T4 THYROXIN - FREE 1.11 ng/dL (0.76-1.46); THYROID STIMULATING HORMONE 1.96 uIU/mL (0.36-3.74)
[2018-04-24 10:28] LABS: INR 0.99 (0.85-1.17); PROTIME 12.6 SECONDS (11.6-15.0)
[2018-04-25] VITALS (61 sets, daily range): BP systolic 92–136; BP diastolic 29–333
[2018-04-25 01:22] LABS: HEMATOCRIT 36.6 % (36.0-48.0); HEMOGLOBIN 12.5 g/dL (12-16); MCH 30.3 pg (26.0-34.0); MCHC 34.2 g/dL (31.0-37.0); MCV 88.6 fL (80.0-100.0); MEAN PLATELET VOLUME 12.2 fL (7.4-10.4); RBC 4.13 10x6/uL (4.00-5.40); RDW 12.8 % (11.5-14.5); WBC 8.3 10x3/uL (4.8-10.8)
[2018-04-25 18:33] LABS: APPEARANCE CLEAR (CLEAR); BILIRUBIN NEGATIVE (NEGATIVE); COLOR YELLOW (YELLOW); EPITHELIAL CELLS 0-5 /hpf (0-5); GLUCOSE 100 mg/dL (NEGATIVE); KETONE SMALL mg/dL (NEGATIVE); NITRITE NEGATIVE (NEGATIVE); PROTEIN 2+ mg/dL (NEGATIVE); RED CELLS - URINE 0-5 /hpf (0-5); UROBILINOGEN NORMAL (NORMAL); WHITE CELLS - URINE NSEEN /hpf (0-5)
[2018-04-26] VITALS (102 sets, daily range): BP systolic 91–139; BP diastolic 30–91
[2018-04-26 01:06] LABS: HEMATOCRIT 35.8 % (36.0-48.0); MCH 29.7 pg (26.0-34.0); MCHC 33.5 g/dL (31.0-37.0); MCV 88.6 fL (80.0-100.0); MEAN PLATELET VOLUME 13.2 fL (7.4-10.4); RBC 4.04 10x6/uL (4.00-5.40); RDW 13.1 % (11.5-14.5)
[2018-04-26 01:07] LABS: WBC 11.2 10x3/uL (4.8-10.8)
[2018-04-26 05:03] LABS: HEMATOCRIT 33.6 % (36.0-48.0); HEMOGLOBIN 11.3 g/dL (12-16); MCH 29.7 pg (26.0-34.0); MCHC 33.6 g/dL (31.0-37.0); MCV 88.4 fL (80.0-100.0); MEAN PLATELET VOLUME 12.3 fL (7.4-10.4); RBC 3.8 10x6/uL (4.00-5.40); RDW 13.4 % (11.5-14.5); WBC 10.1 10x3/uL (4.8-10.8)
[2018-04-26 05:20] LABS: ALBUMIN 1.8 g/dL (3.4-5.0); ANION GAP 12.3 mmol/L (8-16); BILIRUBIN - TOTAL 0.46 mg/dL (0.2-1.3); CALCIUM 7.2 mg/dL (8.5-10.1); CARBON DIOXIDE 24.9 mmol/L (21.0-32.0); CREATININE - SERUM 1.1 mg/dL (0.6-1.3); POTASSIUM - SERUM 4.2 mmol/L (3.5-5.1); PROTEIN - SERUM 4.5 g/dL (6.4-8.2)
[2018-04-27] VITALS (48 sets, daily range): BP systolic 103–137; BP diastolic 48–77
[2018-04-27 01:29] LABS: HEMATOCRIT 31.8 % (36.0-48.0); HEMOGLOBIN 10.5 g/dL (12-16); MCH 29.8 pg (26.0-34.0); MCV 90.3 fL (80.0-100.0); MEAN PLATELET VOLUME 12.8 fL (7.4-10.4); RBC 3.52 10x6/uL (4.00-5.40); RDW 13.7 % (11.5-14.5)
[2018-04-27 01:31] LABS: WBC 15.5 10x3/uL (4.8-10.8)
[2018-04-27 06:04] LABS: HEMATOCRIT 31.8 % (36.0-48.0); HEMOGLOBIN 10.3 g/dL (12-16); MCH 29.1 pg (26.0-34.0); MCHC 32.4 g/dL (31.0-37.0); MCV 89.8 fL (80.0-100.0); MEAN PLATELET VOLUME 12.7 fL (7.4-10.4); RBC 3.54 10x6/uL (4.00-5.40); RDW 13.5 % (11.5-14.5); WBC 13.2 10x3/uL (4.8-10.8)
[2018-04-27 06:30] LABS: ALBUMIN 1.7 g/dL (3.4-5.0); BILIRUBIN - TOTAL 0.41 mg/dL (0.2-1.3); CALCIUM 7.2 mg/dL (8.5-10.1); CREATININE - SERUM 1.1 mg/dL (0.6-1.3); PROTEIN - SERUM 5.1 g/dL (6.4-8.2)
[2018-04-27 20:48] LABS: MAGNESIUM - SERUM 2.5 mg/dL (1.8-2.4); POTASSIUM - SERUM 4.2 mmol/L (3.5-5.1)
[2018-04-28] VITALS (24 sets, daily range): BP systolic 92–139; BP diastolic 43–67
[2018-04-28 06:21] LABS: ALBUMIN 1.7 g/dL (3.4-5.0); ANION GAP 9.4 mmol/L (8-16); BILIRUBIN - TOTAL 0.5 mg/dL (0.2-1.3); CALCIUM 7.6 mg/dL (8.5-10.1); CARBON DIOXIDE 28.7 mmol/L (21.0-32.0); CREATININE - SERUM 1.1 mg/dL (0.6-1.3); POTASSIUM - SERUM 4.1 mmol/L (3.5-5.1); PROTEIN - SERUM 5.5 g/dL (6.4-8.2)
[2018-04-28 06:46] LABS: HEMATOCRIT 29.7 % (36.0-48.0); HEMOGLOBIN 9.9 g/dL (12-16); MCHC 33.3 g/dL (31.0-37.0); MEAN PLATELET VOLUME 12.3 fL (7.4-10.4); RBC 3.3 10x6/uL (4.00-5.40); RDW 13.2 % (11.5-14.5); WBC 10.6 10x3/uL (4.8-10.8)
[2018-04-29] VITALS (23 sets, daily range): BP systolic 113–146; BP diastolic 48–105
[2018-04-29 06:52] LABS: HEMATOCRIT 27.6 % (36.0-48.0); HEMOGLOBIN 8.9 g/dL (12-16); MCH 29.2 pg (26.0-34.0); MCHC 32.2 g/dL (31.0-37.0); MCV 90.5 fL (80.0-100.0); MEAN PLATELET VOLUME 11.4 fL (7.4-10.4); RBC 3.05 10x6/uL (4.00-5.40); RDW 13.1 % (11.5-14.5)
[2018-04-29 06:55] LABS: WBC 7.7 10x3/uL (4.8-10.8)
[2018-04-29 07:07] LABS: ALBUMIN 1.5 g/dL (3.4-5.0); ANION GAP 9.8 mmol/L (8-16); BILIRUBIN - TOTAL 0.51 mg/dL (0.2-1.3); CALCIUM 7.6 mg/dL (8.5-10.1); CARBON DIOXIDE 28.4 mmol/L (21.0-32.0); POTASSIUM - SERUM 4.2 mmol/L (3.5-5.1); PROTEIN - SERUM 5.2 g/dL (6.4-8.2)
[2018-04-30] VITALS (24 sets, daily range): BP systolic 101–152; BP diastolic 50–76
[2018-04-30 06:43] LABS: HEMATOCRIT 31.1 % (36.0-48.0); HEMOGLOBIN 10.1 g/dL (12-16); MCH 29.5 pg (26.0-34.0); MCHC 32.5 g/dL (31.0-37.0); MCV 90.9 fL (80.0-100.0); MEAN PLATELET VOLUME 11.4 fL (7.4-10.4); RBC 3.42 10x6/uL (4.00-5.40); RDW 13.1 % (11.5-14.5); WBC 9.1 10x3/uL (4.8-10.8)
[2018-04-30 06:51] LABS: ALBUMIN 1.6 g/dL (3.4-5.0); ANION GAP 11.3 mmol/L (8-16); BILIRUBIN - TOTAL 0.59 mg/dL (0.2-1.3); CALCIUM 7.7 mg/dL (8.5-10.1); CARBON DIOXIDE 27.7 mmol/L (21.0-32.0); CREATININE - SERUM 0.9 mg/dL (0.6-1.3)
[2018-05-01] VITALS (23 sets, daily range): BP systolic 96–159; BP diastolic 46–94
[2018-05-01 05:07] LABS: HEMATOCRIT 29.6 % (36.0-48.0); HEMOGLOBIN 9.5 g/dL (12-16); MCH 29.2 pg (26.0-34.0); MCHC 32.1 g/dL (31.0-37.0); MCV 91.1 fL (80.0-100.0); MEAN PLATELET VOLUME 10.9 fL (7.4-10.4); RBC 3.25 10x6/uL (4.00-5.40); RDW 13.2 % (11.5-14.5); WBC 8.6 10x3/uL (4.8-10.8)
[2018-05-01 08:32] LABS: ALBUMIN 1.7 g/dL (3.4-5.0); ANION GAP 15.4 mmol/L (8-16); BILIRUBIN - TOTAL 0.52 mg/dL (0.2-1.3); CARBON DIOXIDE 26.6 mmol/L (21.0-32.0); MAGNESIUM - SERUM 1.8 mg/dL (1.8-2.4); PROTEIN - SERUM 6.2 g/dL (6.4-8.2)
[2018-05-02] VITALS (10 sets, daily range): BP systolic 100–137; BP diastolic 8–64
[2018-05-02 05:17] LABS: HEMATOCRIT 28.3 % (36.0-48.0); HEMOGLOBIN 9.3 g/dL (12-16); MCH 29.4 pg (26.0-34.0); MCHC 32.9 g/dL (31.0-37.0); MCV 89.6 fL (80.0-100.0); MEAN PLATELET VOLUME 10.9 fL (7.4-10.4); RBC 3.16 10x6/uL (4.00-5.40); RDW 13.1 % (11.5-14.5); WBC 8.1 10x3/uL (4.8-10.8)
[2018-05-02] MEDS ORDERED: HEMOCYTE PLUS C1 CAP PO (13:29)
[2018-05-02] MEDS ORDERED: PLAVIX75 MG PO (13:29)
[2018-05-02] MEDS ORDERED: AMIODARONE HCL200 MG PO (13:30)
[2018-05-02] MEDS ORDERED: PRAVASTATIN SOD10 MG PO (13:30)
[2018-05-02] MEDS ORDERED: LOPRESSOR25 MG PO (13:30)
[2018-05-02] MEDS ORDERED: GLUCOPHAGE500 MG PO (13:31)
[2018-05-02] MEDS ORDERED: ASPIRIN EC81 M1 PO (13:31)
[2018-05-02] MEDS ORDERED: PERCOCET 5-3251 TAB PO (13:33)
== END 2018-05-02 15:24 | disposition home or self-care (01) | DRG 234 ==
LOC: D.ER 18:07 → D.M2 21:23 → D.EDHOLD 21:23 → D.CVICU 21:23 → D.M2 21:25 → D.CVICU 04-23 15:18
PROVIDERS: Family Medicine; Internal Medicine Cardiovascular Disease; Thoracic Surgery (Cardiothoracic Vascular Surgery)
PROC: B2151ZZ Fluoroscopy of Left Heart using Low Osmolar Contrast (ICD-10-PCS; 2018-04-22)
PROC: 4A023N7 Measurement of Cardiac Sampling and Pressure, Left Heart, Percutaneous Approach (ICD-10-PCS; 2018-04-22)
PROC: B2111ZZ Fluoroscopy of Multiple Coronary Arteries using Low Osmolar Contrast (ICD-10-PCS; principal; 2018-04-22 08:00)
PROC: 02100Z9 Bypass Coronary Artery, One Artery from Left Internal Mammary, Open Approach (ICD-10-PCS; 2018-04-25)
PROC: 021109W Bypass Coronary Artery, Two Arteries from Aorta with Autologous Venous Tissue, Open Approach (ICD-10-PCS; 2018-04-25)
PROC: 06BP4ZZ Excision of Right Saphenous Vein, Percutaneous Endoscopic Approach (ICD-10-PCS; 2018-04-25)
PROC: 5A02210 Assistance with Cardiac Output using Balloon Pump, Continuous (ICD-10-PCS; 2018-04-25)
PROC: 5A1221Z Performance of Cardiac Output, Continuous (ICD-10-PCS; 2018-04-25)
PROC: B24BZZ4 Ultrasonography of Heart with Aorta, Transesophageal (ICD-10-PCS; 2018-04-25)
DX: I21.4 Non-ST elevation (NSTEMI) myocardial infarction (principal); N17.9 Acute kidney failure, unspecified; J98.11 Atelectasis; I25.110 Atherosclerotic heart disease of native coronary artery with unstable angina pectoris; I44.7 Left bundle-branch block, unspecified; E11.9 Type 2 diabetes mellitus without complications; I10 Essential (primary) hypertension; E78.5 Hyperlipidemia, unspecified; I25.5 Ischemic cardiomyopathy; D64.9 Anemia, unspecified; K59.00 Constipation, unspecified

== ENCOUNTER → 2018-09-20 10:37 | Outpatient (CLI) | payer MEDICAID ==
[2018-04-22 12:47] VITALS: BMI 22.6
[~2018-09-20 10:37] MED LIST: AMIODARONE HCL200 MG PO; ASPIRIN EC81 M1 PO; GLUCOPHAGE500 MG PO; HEMOCYTE PLUS C1 CAP PO; LOPRESSOR25 MG PO; PERCOCET 5-3251 TAB PO; PLAVIX75 MG PO; PRAVASTATIN SOD10 MG PO
== END | disposition home or self-care (01) ==
LOC: D.HCCARDIO 10:30
PROVIDERS: ATTEND Internal Medicine Cardiovascular Disease
DX: I48.91 Unspecified atrial fibrillation (principal)